=== PATIENT | male | born 1955 | race African-American/Black ===

== ENCOUNTER 2023-07-13 12:39 | Emergency (ER) | payer OTHER, MEDICAID ==
[2023-07-13] MEDS ORDERED: HYDROcodone/Acetaminophen 5/325 mg Tablet ONE (13:22)
[2023-07-13] MEDS ORDERED: Cephalexin 250 MG CAP ONE (14:06)
[2023-07-13] MEDS ORDERED: Sulfameth/Trimethoprim DS 800-160mg TAB ONE (14:06)
== END 2023-07-13 14:08 | disposition home or self-care (01) ==
LOC: ERS 12:39
DX: L02.415 Cutaneous abscess of right lower limb (principal); F17.210 Nicotine dependence, cigarettes, uncomplicated
CPT/HCPCS: 10060

== ENCOUNTER 2024-06-19 11:58 | Outpatient (CLI) | payer OTHER, MEDICAID ==
[2024-06-19 15:24] LABS: #Basophils 0.05 10x3/uL (0.0-0.2); #Eosinphils 0.15 10x3/uL (0.0-0.5); #Monocytes 0.49 10x3/uL (0.0-1.1); #Neutrophils 2.88 10x3/uL (1.5-8.4); %Basophils 0.9 % (0.0-2.0); %Eosinophils 2.8 % (0.0-6.0); %Lymphocytes 34.1 % (18.0-47.0); %Neutrophils 52.8 % (40.0-75.0); Hematocrit 40.4 % (38.8-50.0); Mean Corpuscular HGB CONC 32.2 g/dL (32.0-36.0); Mean Corpuscular Volume 93.3 fL (81.2-95.1); Platelet Count 164 10x3/uL (150-450); RBC Distribution Width 13.2 % (11.5-14.5); Red Blood Cell (RBC) Count 4.33 10x6/uL (4.32-5.72); White Blood Cell (WBC) Count 5.5 10x3/uL (3.5-10.5)
[2024-06-19 15:28] LABS: Anion Gap 11 mmol/L (10-20); BUN (Urea Nitrogen) 19 mg/dL (8.4-25.7); Calc. Creatinine Clearance 0 mL/min (70-130); Calcium 9.2 mg/dL (7.8-10.44); Carbon Dioxide 25 mmol/L (23-31); Chloride 106 mmol/L (98-107); Estimated GFR 93; Glucose 73 mg/dL (80-115); Potassium 4.1 mmol/L (3.5-5.1); Sodium 138 mmol/L (136-145)
== END 2024-06-19 11:59 | disposition home or self-care (01) ==
LOC: LABBT 11:58
PROVIDERS: ATTEND Surgery
DX: Z01.818 Encounter for other preprocedural examination (principal); K40.90 Unilateral inguinal hernia, without obstruction or gangrene, not specified as recurrent
CPT/HCPCS: 80048; 85025; 93005; 93010

== ENCOUNTER 2024-06-23 09:33 | Day surgery (SDC) | payer OTHER, MEDICAID ==
[2024-06-19 13:38] VITALS: BMI 21.5
[2024-06-23] MEDS ORDERED: PROPOFOL 20 ML ONE (10:47)
[2024-06-23] MEDS ORDERED: Rocuronium Bromide 10 MG/ML (10ML VIAL) ONE (10:47)
[2024-06-23] MEDS ORDERED: Lidocaine 1% PF 5 ML VIAL ONE (10:47)
[2024-06-23] MEDS ORDERED: Acetaminophen 500 MG TAB ONE (10:51)
[2024-06-23] MEDS ORDERED: fentaNYL PF 100 MCG/2 ML SYRINGE ONE (11:19)
[2024-06-23] MEDS ORDERED: EPINEPHrine 1 MG/ML VIAL ONE (11:21)
[2024-06-23] MEDS ORDERED: Bupivacaine 0.25% HCL 30 ML VIAL ONE (11:21)
[2024-06-23] MEDS ORDERED: CEFAZOLIN 2 GM VIAL ONE (11:29)
[2024-06-23] MEDS ORDERED: Sodium Chloride 0.9% 100 ML ONE (11:29)
[2024-06-23] MEDS ORDERED: Dexamethasone 4 mg/ml Vial ONE (11:53)
[2024-06-23] MEDS ORDERED: ePHEDrine Sulfate 50 MG/10 ML VIAL ONE (11:53)
[2024-06-23] MEDS ORDERED: Labetalol HCl 100 MG/20 ML VIAL ONE (12:05)
[2024-06-23] MEDS ORDERED: Ondansetron PF 4 MG/2 ML Vial ONE (12:39)
[2024-06-23] MEDS ORDERED: SUGAMMADEX SODIUM 200 MG/2 ML VIAL ONE (12:40)
[2024-06-23] MEDS ORDERED: hydrALAZINE 20 MG/ML VIAL ONE (13:04)
[2024-06-23] MEDS ORDERED: fentaNYL 50 mcg/mL 1 mL Vial ONE ×3 (13:30→14:04)
[2024-06-23] MEDS ORDERED: HYDROcodone/Acetaminophen 5/325 mg Tablet ONE (14:48)
== END 2024-06-23 15:35 | disposition home or self-care (01) ==
LOC: SDC 09:33
PROVIDERS: ATTEND Surgery
PROC: 0YQ64ZZ Repair Left Inguinal Region, Percutaneous Endoscopic Approach (ICD-10-PCS; principal; 2024-06-23)
DX: K40.90 Unilateral inguinal hernia, without obstruction or gangrene, not specified as recurrent (principal)
CPT/HCPCS: 49650; A4314; C1781; J0171; J0360; J0665; J1100; J2405; J2704; J3010